=== PATIENT | female | born 1975 | race Caucasian/White ===

== ENCOUNTER 2016-10-19 03:20 | Emergency (ER) | payer MEDICARE ==
[~2016-10-19] VITALS: Ht 162.6 cm; Wt 60.5 kg
[~2016-10-19 03:20] MED LIST: FOLI1TAB4 PO; HALO5TAB PO; PANT40TA3 PO; VITA100T2 PO
[2016-10-19 03:25] VITALS: BP 117/74; PULSE 63; RESP 16; TEMP 98.4; O2SAT 100
[2016-10-19] MEDS ORDERED: IBUPROFEN 600 MG TAB PO ONE (03:45)
--- NOTE | 2016-10-19 03:50 | PD ---
HPI Chief Complaint: Injury Time Seen by Provider: 03:38 Travel History International Travel<30 days: No Contact w/Intl Traveler<30days: No Traveled to known affect area: No History of Present Illness HPI 41-year-old female patient presents to the ER today for 6 days history of right foot pain and states that she has sprained her ankle 3 days ago and has been having right ankle pain. She denies any fevers or any other issues. She admits that she has been walking in wet shoes for several days. She is currently homeless. Modifying Factors: None Associated Signs & Symptoms: Right foot pain and blisters, right ankle injury Risk Factors: None PFSH Past Medical History Bipolar Disorder: Yes Anxiety: Yes Depression: Yes Cancer: No Cardiovascular Problems: No Diabetes: No Diminished Hearing: No Headaches: No Hypertension: Yes Musculoskeletal: Yes (Chronic back pain) Psychiatric: No Immunizations Current: No Schizophrenia: Yes Seizures: No Tetanus Vaccination: Unknown Influenza Vaccination: No ?: Not LMP: 10-18-16 : 9 Para: 0 Miscarriage: 9 : 0 Past Surgical History Appendectomy: Yes Genitourinary Surgery: Yes (Bladder surgery) Other Surgery: No ((L) knee, (R) shoulder) Social History Alcohol Use: Yes (Rarely) Tobacco Use: Yes (1 PPD) Substance Use: Yes (COKE AND ETOH) Allergies-Medications (Allergen,Severity, Reaction): Coded Allergies: No Known Allergies (Unverified , 10/19/16) Reported Meds & Prescriptions Reported Meds & Active Scripts Active No Active Prescriptions or Reported Medications Review of Systems Except as stated in HPI: all other systems reviewed are Neg Physical Exam Narrative GENERAL: Well-nourished, well-developed middle age white female patient in mild distress. SKIN: Focused skin assessment warm/dry. HEAD: Normocephalic. EYES: No scleral icterus. No injection or drainage. NECK: Supple, trachea midline. CARDIOVASCULAR: Regular rate and rhythm without murmurs, gallops, or rubs. RESPIRATORY: Breath sounds equal bilaterally. No accessory muscle use. GASTROINTESTINAL: Abdomen soft, non-tender, nondistended. MUSCULOSKELETAL: No cyanosis, or edema. BACK: Nontender without obvious deformity. No CVA tenderness. EXTREMITIES: No clubbing, cyanosis, or edema. There is notable edema and tenderness on palpation over the right lateral malleolus. No obvious deformities identified. There is significant blistering and open sores over the bottom of the right foot as well as toes. Generally erythematous. Neurovascularly intact. Data Data Last Documented VS Vital Signs Date Time Temp Pulse Resp B/P Pulse Ox O2 Delivery O2 Flow Rate FiO2 10/19/16 03:35 Room Air 10/19/16 03:25 98.4 63 16 117/74 100 Orders Ankle, Complete ([id number]) (10/19/16 03:38) Ibuprofen (Motrin) (10/19/16 03:45) Splint Or Brace Apply/Monitor (10/19/16 04:19) Crutches (10/19/16 04:19) MDM Medical Decision Making Medical Screen Exam Complete: Yes Emergency Medical Condition: Yes Medical Record Reviewed: Yes Interpretation(s) Last 24 hours Impressions Ankle X-Ray 10/19/16 0338 Signed Impressions: Service Date/Time: Wednesday, October 19, 2016 03:46 - CONCLUSION: 1. Mild soft tissue swelling over the lateral malleolus with no acute fracture or malalignment. 2. Small spur off the inferior calcaneus. Miguelangel Zuniga MD Differential Diagnosis Right ankle injuryrule out fractures, trench foot Narrative Course X-ray did not show any signs of acute fractures. I suspect that she does have an ankle sprain. At this point, patient's foot was washed and dried and appears much better. I think that she has underlying problems with the witness of her sneakers which she has been wearing around for days. There is significant foot odor as well. I have told her that she needs to let the feet dry out and she needs to stop wearing the sneakers if possible. She will need to practice good foot hygiene for the next few weeks. Return for any worsening in pain, swelling, redness, or new symptoms as needed. The plan has discussed with her and she states understanding. Diagnosis Primary Impression: Right ankle sprain Additional Impression: Immersion (trench) foot Med/Other Pt SpecificInfo: Prescription(s) given Scripts Ibuprofen (Motrin Ib)200 Mg [id number] Mg PO QID PRN (PAIN SCALE 1 TO 10) #20 Prov:Tasha Benites MD 10/19/16 Sulfamethoxazole-Trimethoprim (Bactrim DS)800-160 Mg Tab1 Tab PO BID #14 TAB Ref 0 Prov:Tasha Benites MD 10/19/16 Disposition: 01 DISCHARGE HOME Condition: Stable Tasha Benites MD Oct 19, 2016 03:50
--- NOTE | 2016-10-19 04:04 | RADRPT ---
EXAM DATE/TIME: 10/19/2016 03:46 [facility] COMPARISON: ANKLE RIGHT COMPLETE ([id number]), April 12, 2016, 4:39. INDICATIONS : Fall. Right ankle pain. MEDICAL HISTORY : None. SURGICAL HISTORY : None. ENCOUNTER: Initial ACUITY: 1 day PAIN SCORE: 8/10 LOCATION: Right lateral FINDINGS: Three view exam was performed of the right ankle. The bony structures are in normal alignment. No e vidence of acute fracture or dislocation. There is mild soft tissue swelling over the lateral malleol us. The ankle mortise is intact. No radiopaque foreign bodies are seen. Bony mineralization is norm al. There is a small spur off the inferior calcaneus. CONCLUSION: 1. Mild soft tissue swelling over the lateral malleolus with no acute fracture or malalignment. 2. Small spur off the inferior calcaneus. Miguelangel Zuniga MD on October 19, 2016 at 4:01 Board Certified Radiologist. This report was verified electronically.
[2016-10-19] MEDS ORDERED: IBUP-1129 PO (04:21)
[2016-10-19] MEDS ORDERED: BACT800T5 PO (04:21)
== END 2016-10-19 04:59 | disposition home or self-care (01) ==
LOC: PHED 03:20
DX: S93.401A Sprain of unspecified ligament of right ankle, initial encounter (principal); F31.9 Bipolar disorder, unspecified; I10 Essential (primary) hypertension; F20.9 Schizophrenia, unspecified; G89.29 Other chronic pain; F17.210 Nicotine dependence, cigarettes, uncomplicated; Z59.0 Homelessness; X50.9XXA Other and unspecified overexertion or strenuous movements or postures, initial encounter; Y93.9 Activity, unspecified; Y92.9 Unspecified place or not applicable
CPT/HCPCS: 73610; 99283; E0113; L3260

== ENCOUNTER 2016-12-10 10:16 | Emergency (ER) | payer MEDICARE ==
[~2016-12-10] VITALS: Ht 163.8 cm; Wt 69.0 kg
[~2016-12-10 10:16] MED LIST changes: +BACT800T5 PO; -FOLI1TAB4 PO; -HALO5TAB PO; +IBUP-1129 PO; -PANT40TA3 PO; -VITA100T2 PO
[2016-12-10 10:24] VITALS: BP 106/76; PULSE 97; RESP 24; TEMP 97.8; O2SAT 99
[2016-12-10] MEDS ORDERED: PERC10TA27 PO (10:47)
[2016-12-10 12:03] LABS: BACTERIA, URINE FEW /hpf; BLOOD, URINE LARGE (NEG); COMMENT (UR) CULTURE INDICATED; CULTURE IF INDICATED CULTURE INDICATED; GLUCOSE,URINE NEG (NEG); KETONE, URINE 10 mg/dL (NEG); MUCUS URINE MOD /lpf (OCC); NITRITE,URINE NEG (NEG); PH, URINE 5.5 (5.0-8.5); SQUAMOUS EPITHELIAL CELL URINE 19 /hpf (0-5)
--- NOTE | 2016-12-10 12:04 | PD ---
HPI Chief Complaint: Complaint Time Seen by Provider: 10:35 Travel History International Travel<30 days: No Contact w/Intl Traveler<30days: No Traveled to known affect area: No History of Present Illness HPI Patient is a 41-year-old female presenting to emergency for evaluation of urinary symptoms. She reports burning and frequency. She also reports vaginal discharge that has a foul odor. She denies any fever, chills, nausea, vomiting , abdominal pain, back pain. Symptoms started several days ago but also chronic in nature. PFSH Past Medical History Bipolar Disorder: Yes Anxiety: Yes Depression: Yes Cancer: No Cardiovascular Problems: Yes Diabetes: No Diminished Hearing: No Headaches: No Hypertension: Yes Musculoskeletal: Yes (Chronic back pain) Psychiatric: No Immunizations Current: No Schizophrenia: Yes Seizures: No Tetanus Vaccination: < 5 Years ?: Unknown LMP: 11/23/16 : 9 Para: 0 Miscarriage: 9 : 0 Past Surgical History Appendectomy: Yes Genitourinary Surgery: Yes Other Surgery: No ((L) knee, (R) shoulder) Social History Alcohol Use: Yes Tobacco Use: Yes Substance Use: No Allergies-Medications (Allergen,Severity, Reaction): Coded Allergies: No Known Allergies (Unverified , 12/10/16) Reported Meds & Prescriptions Reported Meds & Active Scripts Active Reported Percocet (Oxycodone-Acetaminophen) 10-325 mg Tab 1 Tab PO Q4H PRN Review of Systems Except as stated in HPI: all other systems reviewed are Neg Genitourinary: Positive: Frequency, Dysuria, Discharge Physical Exam Narrative GENERAL: Well developed, well-nourished, alert female. Resting comfortably in no acute distress SKIN: Warm and dry. HEAD: Atraumatic. Normocephalic. EYES: Pupils equal and round. No scleral icterus. No injection or drainage. ENT: No nasal bleeding or discharge. Mucous membranes pink and moist. NECK: Trachea midline. No JVD. CARDIOVASCULAR: Regular rate and rhythm. RESPIRATORY: No accessory muscle use. Clear to auscultation. Breath sounds equal bilaterally. GASTROINTESTINAL: Abdomen soft, non-tender, nondistended. Hepatic and splenic margins not palpable. GENITOURINARY: Normal external genitalia without lesions or erythema. Vaginal vault without blood. Yellow-green drainage noted in vault. Cervical os was closed. Cervix is erythematous and friable. No cervical motion tenderness. Uterus nontender and nonenlarged. Bilateral adnexa nontender without masses. MUSCULOSKELETAL: Extremities without clubbing, cyanosis, or edema. No obvious deformities. NEUROLOGICAL: Awake and alert. No obvious cranial nerve deficits. Motor grossly within normal limits. Five out of 5 muscle strength in the arms and legs. Normal speech. PSYCHIATRIC: Appropriate mood and affect; insight and judgment normal. Data Data Last Documented VS Vital Signs Date Time Temp Pulse Resp B/P (MAP) Pulse Ox O2 Delivery O2 Flow Rate FiO2 12/10/16 10:48 73 16 12/10/16 10:24 97.8 106/76 (86) 99 Orders Orders Gc And Chlamydia Pcr (12/10/16 11:00) Wet Prep Profile (12/10/16 11:00) Urinalysis - C+S If Indicated (12/10/16 11:00) Urine Culture (12/10/16 10:00) Cephalexin (Keflex) (12/10/16 12:30) Labs Laboratory Tests Test 12/10/16 10:00 12/10/16 11:30 Urine Color LIGHT-RED Urine Turbidity HAZY Urine pH 5.5 Urine Specific Llewellyn 1.031 Urine Protein 100 mg/dL Urine Glucose (UA) NEG mg/dL Urine Ketones 10 mg/dL Urine Occult Blood LARGE Urine Nitrite NEG Urine Bilirubin NEG Urine Urobilinogen 2.0 MG/DL Urine Leukocyte Esterase LARGE Urine RBC /hpf Urine WBC 63 /hpf Urine Squamous Epithelial Cells 19 /hpf Urine Bacteria FEW /hpf Urine Mucus MOD /lpf Microscopic Urinalysis Comment CULTURE INDICATED Clue Cells (Wet Prep) NONE SEEN Vaginal Trichomonas (Wet Prep) NONE SEEN Vaginal Yeast (Wet Prep) NONE SEEN MDM Medical Decision Making Medical Screen Exam Complete: Yes Emergency Medical Condition: Yes Medical Record Reviewed: Yes Interpretation(s) Vital Signs Date Time Temp Pulse Resp B/P (MAP) Pulse Ox O2 Delivery O2 Flow Rate FiO2 12/10/16 10:48 73 16 12/10/16 10:24 97.8 97 24 106/76 (86) 99 Differential Diagnosis UTI versus STD versus BV versus cervicitis versus other Narrative Course Patient is a 41-year-old female presenting with urinary symptoms and vaginal discharge. Patient's vital signs are stable, labs ordered and pending. Urinalysis is indicative of urinary tract infection. Patient will be given first dose of Keflex now. Cervix appears friable, consistent with cervicitis. Patient was offered empiric treatment for chlamydia and gonorrhea but she declined stating that she's been monogamous relationship for 3 years. Patient' s wet prep was negative. Patient was advised that she would be notified if she was positive for Chlamydia and/or gonorrhea. If this was the case that her partner would also need to be tested and/or treated. Patient verbalized understanding of discharge instructions. Patient is stable for discharge. Diagnosis Primary Impression: UTI (urinary tract infection) Qualified Codes: N39.0 - Urinary tract infection, site not specified; R31.9 - Hematuria, unspecified Additional Impression: Friable cervix Referrals: [facility] Primary Care Physician Patient Instructions: Cervicitis (GEN), General Instructions, Urinary Tract Infection in Women (GEN) Additional Instructions: Follow-up at the [facility] Complete full course of antibiotics as prescribed You will be notified regarding test results, if positive you will need to return for treatment, partner will also need to be tested and or treated. Return to the emergency department for any new or worsening symptoms. Med/Other Pt SpecificInfo: Prescription(s) given Scripts Cephalexin (Keflex) 500 Mg Cap 500 MG PO Q12H for Infection for 10 Days, #20 CAP 0 Refills Prov: Yolanda Chang 12/10/16 Disposition: 01 DISCHARGE HOME Condition: Stable Yolanda Chang Dec 10, 2016 12:04
[2016-12-10 12:09] LABS: URINE COLOR LIGHT-RED (YELLW/STRAW)
[2016-12-10] MEDS ORDERED: CEPHALEXIN MONOHYDRATE 500 MG CAP PO ONE (12:30)
[2016-12-10] MEDS ORDERED: CEPH-460 PO (12:34)
[2016-12-10 13:12] VITALS: BP 115/78
[2016-12-10 15:55] LABS: CHLAMYDIA PCR DETECTED (NOT DETECT); NEISSERIA PCR NOT DETECTED (NOT DETECT)
== END 2016-12-10 13:15 | disposition home or self-care (01) ==
LOC: NEPD 10:16
DX: N39.0 Urinary tract infection, site not specified (principal); N89.8 Other specified noninflammatory disorders of vagina; F31.9 Bipolar disorder, unspecified; F41.9 Anxiety disorder, unspecified; I10 Essential (primary) hypertension; F20.9 Schizophrenia, unspecified; Z72.0 Tobacco use
CPT/HCPCS: 81001; 87086; 87210; 87491; 87591; 99283

== ENCOUNTER 2016-12-12 07:50 | Emergency (ER) | payer MEDICARE ==
[~2016-12-12] VITALS: Ht 163.8 cm; Wt 73.0 kg
[~2016-12-12 07:50] MED LIST changes: -BACT800T5 PO; +CEPH-460 PO; -IBUP-1129 PO; +PERC10TA27 PO
[2016-12-12] MEDS ORDERED: HYDROmorphone HCL PF 1 MG/ML VIAL IV PUSH ONE (08:00)
[2016-12-12] MEDS ORDERED: SODIUM CHLOR 0.9% 1000 ML INJ 1,000 ML IV ONE (08:00)
[2016-12-12 08:04] VITALS: BP 121/68; PULSE 129; RESP 24; TEMP 98.6; O2SAT 96; O2SAT 99
[2016-12-12] MEDS ORDERED: SODIUM CHLORIDE 0.9% FLUSH 10 ML FLUSH IV FLUSH PRN (08:15)
--- NOTE | 2016-12-12 08:15 | PD ---
HPI Chief Complaint: GI Complaint Time Seen by Provider: 07:54 Travel History International Travel<30 days: No Contact w/Intl Traveler<30days: No Traveled to known affect area: No History of Present Illness HPI Patient is a 41-year-old female who presents to emergency room complaints of rectal pain and constipation. Reports that she does take opiates, reports that she has not had a bowel movement in 7 days. Patient reports that she was spraining during defecation today and her rectum prolapsed out. Fire rescue arrived on scene first - reports that they did see this rectal prolapse. EMS reports that when they arrived on scene, patient had pushed her rectum back into place. Patient is currently yelling and screaming in pain, denies history of rectal prolapse in the past. Patient does admit to history of hemorrhoids. PFSH Past Medical History Bipolar Disorder: Yes Anxiety: Yes Depression: Yes Cancer: No Cardiovascular Problems: Yes Diabetes: No Diminished Hearing: No Headaches: No Hypertension: Yes Musculoskeletal: Yes (Chronic back pain) Psychiatric: No Immunizations Current: No Schizophrenia: Yes Seizures: No ?: Not LMP: 11/23/16 : 9 Para: 0 Miscarriage: 9 : 0 Past Surgical History Appendectomy: Yes Genitourinary Surgery: Yes Other Surgery: No ((L) knee, (R) shoulder) Social History Alcohol Use: Yes Tobacco Use: Yes Substance Use: No Allergies-Medications (Allergen,Severity, Reaction): Coded Allergies: No Known Allergies (Unverified , 12/12/16) Reported Meds & Prescriptions Reported Meds & Active Scripts Active Keflex (Cephalexin) 500 Mg Cap 500 Mg PO Q12H 10 Days Reported Percocet (Oxycodone-Acetaminophen) 10-325 mg Tab 1 Tab PO Q4H PRN Review of Systems General / Constitutional: No: Fever Eyes: No: Visual changes HENT: No: Headaches Cardiovascular: No: Chest Pain or Discomfort Respiratory: No: Shortness of Breath Gastrointestinal: Positive: Constipation, Other (rectal pain), No: Abdominal Pain Genitourinary: No: Dysuria Musculoskeletal: No: Pain Skin: No Rash Neurologic: No: Weakness Psychiatric: No: Depression Endocrine: No: Polydipsia Hematologic/Lymphatic: No: Easy Bruising Physical Exam Narrative GENERAL: moderate distress SKIN: Focused skin assessment warm/dry. HEAD: Atraumatic. Normocephalic. EYES: Pupils equal and round. No scleral icterus. No injection or drainage. ENT: No nasal bleeding or discharge. Mucous membranes pink and moist. NECK: Trachea midline. No JVD. CARDIOVASCULAR: Regular rate and rhythm. No murmur appreciated. RESPIRATORY: No accessory muscle use. Clear to auscultation. Breath sounds equal bilaterally. GASTROINTESTINAL: Abdomen soft, non-tender, nondistended. Hepatic and splenic margins not palpable. Patient with external hemorrhoids which are nonthrombosed on exam, patient does not have a rectal prolapse this time, patient does have hard stool balls in her rectal vault, patient with light brown stool - exam performed with RN at bedside MUSCULOSKELETAL: No obvious deformities. No clubbing. No cyanosis. No edema. NEUROLOGICAL: Awake and alert. No obvious cranial nerve deficits. Motor grossly within normal limits. Normal speech. PSYCHIATRIC: Appropriate mood and affect; insight and judgment normal. Data Data Last Documented VS Vital Signs Date Time Temp Pulse Resp B/P (MAP) Pulse Ox O2 Delivery O2 Flow Rate FiO2 12/12/16 08:04 96 Room Air 12/12/16 08:04 98.6 129 24 121/68 (85) Orders Orders Hydromorphone Pf Inj (Dilaudid Pf Inj) (12/12/16 08:00) Sodium Chlor 0.9% 1000 Ml Inj (Ns 1000 M (12/12/16 08:00) Complete Blood Count With Diff (12/12/16 08:02) Comprehensive Metabolic Panel (12/12/16 08:02) Prothrombin Time / Inr (Pt) (12/12/16 08:02) Act Partial Throm Time (Ptt) (12/12/16 08:02) Iv Access Insert/Monitor (12/12/16 08:02) Ecg Monitoring (12/12/16 08:02) Oximetry (12/12/16 08:02) Sodium Chloride 0.9% Flush (Ns Flush) (12/12/16 08:15) Ed Urine Pregnancytest Poc (12/12/16 08:02) Enema Administration PRN (12/12/16 08:14) Ct Abd/Pel W Iv Contrast(Rout) (12/12/16 08:16) Fleets Enema (Adult) (Fleets Enema (Adul (12/12/16 08:45) Iohexol 350 Inj (Omnipaque 350 Inj) (12/12/16 09:41) Labs Laboratory Tests Test 12/12/16 08:15 White Blood Count 8.1 TH/MM3 Red Blood Count 4.03 MIL/MM3 Hemoglobin 12.4 GM/DL Hematocrit 37.1 % Mean Corpuscular Volume 92.2 FL Mean Corpuscular Hemoglobin 30.8 PG Mean Corpuscular Hemoglobin Concent 33.4 % Red Cell Distribution Width 14.1 % Platelet Count 96 TH/MM3 Mean Platelet Volume 10.9 FL Neutrophils (%) (Auto) 59.2 % Lymphocytes (%) (Auto) 30.0 % Monocytes (%) (Auto) 7.7 % Eosinophils (%) (Auto) 2.9 % Basophils (%) (Auto) 0.2 % Neutrophils # (Auto) 4.8 TH/MM3 Lymphocytes # (Auto) 2.4 TH/MM3 Monocytes # (Auto) 0.6 TH/MM3 Eosinophils # (Auto) 0.2 TH/MM3 Basophils # (Auto) 0.0 TH/MM3 CBC Comment AUTO DIFF Differential Comment AUTO DIFF CONFIRMED Platelet Estimate LOW Platelet Morphology Comment ENLARGED Prothrombin Time 11.4 SEC Prothromb Time International Ratio 1.0 RATIO Activated Partial Thromboplast Time 20.5 SEC Blood Urea Nitrogen 9 MG/DL Creatinine 0.73 MG/DL Random Glucose 80 MG/DL Total Protein 6.6 GM/DL Albumin 3.4 GM/DL Calcium Level 8.5 MG/DL Alkaline Phosphatase 66 U/L Aspartate Amino Transf (AST/SGOT) 19 U/L Alanine Aminotransferase (ALT/SGPT) 24 U/L Total Bilirubin 0.2 MG/DL Sodium Level 141 MEQ/L Potassium Level 3.7 MEQ/L Chloride Level 109 MEQ/L Carbon Dioxide Level 24.6 MEQ/L Anion Gap 7 MEQ/L Estimat Glomerular Filtration Rate 87 ML/MIN [facility] Medical Decision Making Medical Screen Exam Complete: Yes Emergency Medical Condition: Yes Interpretation(s) Vital Signs Date Time Temp Pulse Resp B/P (MAP) Pulse Ox O2 Delivery O2 Flow Rate FiO2 12/12/16 08:04 96 Room Air Differential Diagnosis Differential includes constipation, small bowel obstruction, rectal prolapse Narrative Course Patient is a 41 year old female who presents to ER with complaints of rectal pain and constipation for the past 7 days. Patient reports that her rectum prolapsed prior to arrival to ER, she was able to push back her rectum back into place. Patient now complaining of rectal pain and constipation. Rectal exam was performed with RN at bedside, patient with resolution of rectal prolapse. Patient comfortable with rectal pain, she does appear to be full of stool. Attempt made to perform manual disimpaction, patient unable to tolerate manual disimpaction. Will order a soapsuds enema. Patient reevaluated, patient feeling much better at this time. She was able to have multiple bowel movements while in the emergency room, abdomen is soft, nontender, nondistended, no peritoneal signs. CT pending. Vital Signs Date Time Temp Pulse Resp B/P (MAP) Pulse Ox O2 Delivery O2 Flow Rate FiO2 12/12/16 08:04 96 Room Air 12/12/16 08:04 98.6 129 24 121/68 (85) 99 Room Air Laboratory Tests Test 12/12/16 08:15 White Blood Count 8.1 TH/MM3 (4.0-11.0) Red Blood Count 4.03 MIL/MM3 (4.00-5.30) Hemoglobin 12.4 GM/DL (11.6-15.3) Hematocrit 37.1 % (35.0-46.0) Mean Corpuscular Volume 92.2 FL (80.0-100.0) Mean Corpuscular Hemoglobin 30.8 PG (27.0-34.0) Mean Corpuscular Hemoglobin Concent 33.4 % (32.0-36.0) Red Cell Distribution Width 14.1 % (11.6-17.2) Platelet Count 96 TH/MM3 (150-450) Mean Platelet Volume 10.9 FL (7.0-11.0) Neutrophils (%) (Auto) 59.2 % (16.0-70.0) Lymphocytes (%) (Auto) 30.0 % (9.0-44.0) Monocytes (%) (Auto) 7.7 % (0.0-8.0) Eosinophils (%) (Auto) 2.9 % (0.0-4.0) Basophils (%) (Auto) 0.2 % (0.0-2.0) Neutrophils # (Auto) 4.8 TH/MM3 (1.8-7.7) Lymphocytes # (Auto) 2.4 TH/MM3 (1.0-4.8) Monocytes # (Auto) 0.6 TH/MM3 (0-0.9) Eosinophils # (Auto) 0.2 TH/MM3 (0-0.4) Basophils # (Auto) 0.0 TH/MM3 (0-0.2) CBC Comment AUTO DIFF Differential Comment AUTO DIFF CONFIRMED Platelet Estimate LOW (NORMAL) Platelet Morphology Comment ENLARGED (NORMAL) Prothrombin Time 11.4 SEC (9.8-11.6) Prothromb Time International Ratio 1.0 RATIO Activated Partial Thromboplast Time 20.5 SEC (24.3-30.1) Blood Urea Nitrogen 9 MG/DL (7-18) Creatinine 0.73 MG/DL (0.50-1.00) Random Glucose 80 MG/DL (74-106) Total Protein 6.6 GM/DL (6.4-8.2) Albumin 3.4 GM/DL (3.4-5.0) Calcium Level 8.5 MG/DL (8.5-10.1) Alkaline Phosphatase 66 U/L (45-117) Aspartate Amino Transf (AST/SGOT) 19 U/L (15-37) Alanine Aminotransferase (ALT/SGPT) 24 U/L (10-53) Total Bilirubin 0.2 MG/DL (0.2-1.0) Sodium Level 141 MEQ/L (136-145) Potassium Level 3.7 MEQ/L (3.5-5.1) Chloride Level 109 MEQ/L (98-107) Carbon Dioxide Level 24.6 MEQ/L (21.0-32.0) Anion Gap 7 MEQ/L (5-15) Estimat Glomerular Filtration Rate 87 ML/MIN (>89) Last Impressions Abdomen/Pelvis CT 12/12/16 0816 Signed Impressions: Service Date/Time: Monday, December 12, 2016 09:38 - CONCLUSION: No acute finding is identified. Colon and rectum demonstrate no acute finding. Donny Albert MD Patient re-evaluated, patient feeling much better at this time. Discussed with patient constipation most likely due to taking narcotic pain medications. Will start patient on miralax. All labs and studies as well as all incidetnal findings were reviewed with patient in detail. She will follow up with her pcp and will return to ER as needed Diagnosis Primary Impression: Constipation Qualified Codes: K59.00 - Constipation, unspecified Additional Impressions: Rectal prolapse Abdominal pain Qualified Codes: R10.9 - Unspecified abdominal pain Patient Instructions: General Instructions Additional Instructions: Please follow up with your primary care doctor Drink plenty of water as well as eat more foods with fiber Please take all medications as prescribed Please follow up with general surgery as needed Return to the ER as needed or if symptoms return Med/Other Pt SpecificInfo: Prescription(s) given Scripts Polyethylene Glycol 3350 Powder (Miralax Powder) 17 Gm Powd 17 GM PO DAILY for Constipation, #1 CAN 0 Refills Mix and dissolve one measuring cap-ful (17 grams) in water or juice. Prov: Cheri Zuluaga DO 12/12/16 Disposition: 01 DISCHARGE HOME Condition: Stable Cheri Zuluaga DO Dec 12, 2016 08:15
[2016-12-12 08:34] LABS: AUTOMATED NEUTROPHIL # 4.8 TH/MM3 (1.8-7.7); BASOPHIL % 0.2 % (0.0-2.0); EOSINOPHIL # 0.2 TH/MM3 (0-0.4); EOSINOPHIL % 2.9 % (0.0-4.0); HEMATOCRIT 37.1 % (35.0-46.0); LYMPHOCYTE # 2.4 TH/MM3 (1.0-4.8); MEAN CELL VOLUME 92.2 FL (80.0-100.0); MEAN CORPUSCULAR HEMOGLOBIN 30.8 PG (27.0-34.0); MEAN CORPUSCULAR HGB CONC 33.4 % (32.0-36.0); MONO % 7.7 % (0.0-8.0); NEUT % 59.2 % (16.0-70.0); PLATELET COUNT 96 TH/MM3 (150-450); RED BLOOD COUNT 4.03 MIL/MM3 (4.00-5.30); RED CELL DISTRIBUTION WIDTH 14.1 % (11.6-17.2); WHITE BLOOD COUNT 8.1 TH/MM3 (4.0-11.0)
[2016-12-12 08:38] LABS: HEMO FLAGS AUTO DIFF
[2016-12-12] MEDS ORDERED: SOD PHOSPHATE/SOD BIPHOSPHATE (ADULT) ENEMA 133ML RECTAL ONE (08:45)
[2016-12-12 08:49] LABS: ALT (GPT) 24 U/L (10-53); ANION GAP 7 MEQ/L (5-15); AST (GOT) 19 U/L (15-37); BICARBONATE 24.6 MEQ/L (21.0-32.0); BLOOD UREA NITROGEN 9 MG/DL (7-18); CHLORIDE 109 MEQ/L (98-107); GLOMERULAR FILTRATION RATE 87 ML/MIN (>89); POTASSIUM 3.7 MEQ/L (3.5-5.1); SODIUM (NA) 141 MEQ/L (136-145)
[2016-12-12 08:51] LABS: ALKALINE PHOSPHATASE 66 U/L (45-117); PROTHROMBIN TIME - PATIENT 11.4 SEC (9.8-11.6); TOTAL BILIRUBIN ADULT 0.2 MG/DL (0.2-1.0)
[2016-12-12 08:54] LABS: APTT (PATIENT) 20.5 SEC (24.3-30.1)
[2016-12-12 09:00] VITALS: BP 113/78; PULSE 106; RESP 20; O2SAT 98
[2016-12-12 09:25] LABS: PLATELET ESTIMATE SMEAR LOW (NORMAL); PLATELET MORPHOLOGY ENLARGED (NORMAL); SCAN/DIFF AUTO DIFF CONFIRMED
[2016-12-12] MEDS ORDERED: IOHEXOL 350 MG/ML 10 ML VIAL (for RAD DIAG) IV PUSH ONE (09:41)
--- NOTE | 2016-12-12 10:07 | RADRPT ---
EXAM DATE/TIME: 12/12/2016 09:38 [facility] COMPARISON: CT ABDOMEN & PELVIS W CONTRAST, May 11, 2016, 22:30. INDICATIONS : Constipation for one week, rectal prolapse today. IV CONTRAST: 72 cc Omnipaque 350 (iohexol) IV ORAL CONTRAST: No oral contrast ingested. RADIATION DOSE: 5.65 CTDIvol (mGy) MEDICAL HISTORY : Hypertension. SURGICAL HISTORY : Appendectomy. ENCOUNTER: Initial ACUITY: 1 day PAIN SCALE: 10/10 LOCATION: rectum TECHNIQUE: Volumetric scanning of the abdomen and pelvis was performed. Using automated exposure control and ad justment of the mA and/or kV according to patient size, radiation dose was kept as low as reasonably achievable to obtain optimal diagnostic quality images. DICOM format image data is available electro nically for review and comparison. FINDINGS: LOWER LUNGS: The visualized lower lungs are clear. There is respiratory motion artifact. LIVER: Homogeneous density without lesion. There is no dilation of the biliary tree. No calcified gallston es. SPLEEN: Normal size without lesion. PANCREAS: Within normal limits. KIDNEYS: Normal in size and shape. There is no mass, stone or hydronephrosis. ADRENAL GLANDS: Within normal limits. VASCULAR: There is no aortic aneurysm. BOWEL/MESENTERY: Stomach is within normal limits. The mid and distal small bowel is distended with fluid but not dilat ed. Terminal ileum is normal. No colon or rectum abnormality is identified. There are clips adjacent to the base of the cecum. There is a normal amount of stool within the colon. ABDOMINAL WALL: Within normal limits. RETROPERITONEUM: There is no lymphadenopathy. BLADDER: No wall thickening or mass. REPRODUCTIVE: Within normal limits. INGUINAL: There is no lymphadenopathy or hernia. MUSCULOSKELETAL: No acute osseous abnormalities identified. There degenerative changes of the spine. CONCLUSION: No acute finding is identified. Colon and rectum demonstrate no acute finding. Donny Albert MD on December 12, 2016 at 9:58 Board Certified Radiologist. This report was verified electronically.
[2016-12-12] MEDS ORDERED: MIRA3350 PO (10:17)
== END 2016-12-12 11:32 | disposition home or self-care (01) ==
LOC: NEPE 07:50
DX: K59.00 Constipation, unspecified (principal); K62.3 Rectal prolapse; R10.9 Unspecified abdominal pain; I10 Essential (primary) hypertension; Z72.0 Tobacco use
CPT/HCPCS: 74177; 80053; 84703; 85025; 85610; 85730; 96361; 96374; 99285; J1170; J7030; Q9967

== ENCOUNTER 2017-01-20 20:25 | Emergency (ER) | payer MEDICARE, OTHER ==
[~2017-01-20 20:25] MED LIST changes: +MIRA3350 PO
[2017-01-20 20:29] VITALS: BP 121/79; PULSE 132; RESP 22; O2SAT 96
[2017-01-20] MEDS ORDERED: HALOPERIDOL LACTATE 5 MG/ML AMP ONE (20:35)
[2017-01-20] MEDS ORDERED: HALOPERIDOL LACTATE 5 MG/ML AMP IM ONE (20:45)
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
[2017-01-20] MEDS ORDERED: LORazepam 2 MG/ML VIAL IM ONE (21:00)
[2017-01-20 21:06] VITALS: BP 95/58; PULSE 99; RESP 18; O2SAT 98
[2017-01-20 21:24] LABS: AMORPHOUS SEDIMENT, URINE RARE; BACTERIA, URINE RARE /hpf; BILIRUBIN, URINE NEG (NEG); BLOOD, URINE SMALL (NEG); GLUCOSE,URINE NEG (NEG); HYALINE CAST, URINE 3 /lpf (RARE); KETONE, URINE NEG (NEG); MUCUS URINE FEW /lpf (OCC); NITRITE,URINE NEG (NEG); SQUAMOUS EPITHELIAL CELL URINE 1 /hpf (0-5); URINE COLOR LIGHT-YELLOW (YELLW/STRAW); URINE LEUKOCYTE ESTERASE LARGE (NEG)
[2017-01-20 21:25] LABS: AUTOMATED NEUTROPHIL # 8.6 TH/MM3 (1.8-7.7); BASOPHIL % 0.3 % (0.0-2.0); EOSINOPHIL # 0.1 TH/MM3 (0-0.4); EOSINOPHIL % 0.6 % (0.0-4.0); HEMATOCRIT 43.6 % (35.0-46.0); HEMOGLOBIN 14.4 GM/DL (11.6-15.3); LYMPH % 30.2 % (9.0-44.0); LYMPHOCYTE # 4.1 TH/MM3 (1.0-4.8); MEAN CELL VOLUME 94.6 FL (80.0-100.0); MEAN CORPUSCULAR HEMOGLOBIN 31.1 PG (27.0-34.0); MEAN CORPUSCULAR HGB CONC 32.9 % (32.0-36.0); MEAN PLATELET VOLUME 11.4 FL (7.0-11.0); MONO % 5.2 % (0.0-8.0); MONOCYTE # 0.7 TH/MM3 (0-0.9); NEUT % 63.7 % (16.0-70.0); PLATELET COUNT 145 TH/MM3 (150-450); RED BLOOD COUNT 4.61 MIL/MM3 (4.00-5.30); RED CELL DISTRIBUTION WIDTH 14.5 % (11.6-17.2); WHITE BLOOD COUNT 13.5 TH/MM3 (4.0-11.0)
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
[2017-01-20 21:41] VITALS: BP 95/58; PULSE 77; RESP 16; O2SAT 98
[2017-01-20 21:44] LABS: ALBUMIN 3.8 GM/DL (3.4-5.0); AST (GOT) 24 U/L (15-37); BICARBONATE 18.6 MEQ/L (21.0-32.0); BLOOD UREA NITROGEN 8 MG/DL (7-18); CALCIUM 8.6 MG/DL (8.5-10.1); CHLORIDE 111 MEQ/L (98-107); GLOMERULAR FILTRATION RATE 61 ML/MIN (>89); GLUCOSE,RANDOM 77 MG/DL (74-106); SODIUM (NA) 141 MEQ/L (136-145)
--- NOTE | 2017-01-20 21:46 | RADRPT ---
EXAM DATE/TIME: 01/20/2017 21:23 [facility] COMPARISON: No previous studies available for comparison. INDICATIONS : Right lower leg pain. MEDICAL HISTORY : None. SURGICAL HISTORY : None. ENCOUNTER: Initial ACUITY: 1 day PAIN SCORE: Non-responsive. LOCATION: Right tibia/fibula. FINDINGS: Two view examination of the right tibia demonstrates no evidence of fracture or dislocation. Bony mi neralization is normal. The soft tissue structures are intact. CONCLUSION: Negative trauma study. Miguelangel Zuniga MD on January 20, 2017 at 21:44 Board Certified Radiologist. This report was verified electronically.
[2017-01-20 21:48] LABS: ALKALINE PHOSPHATASE 60 U/L (45-117); ALT (GPT) 21 U/L (10-53); TOTAL BILIRUBIN ADULT 0.3 MG/DL (0.2-1.0)
[2017-01-20] MEDS ORDERED: SODIUM CHLOR 0.9% 1000 ML INJ 1,000 ML IV ONE ×2 (22:15)
[2017-01-20] MEDS ORDERED: cefTRIAXone INJ 1,000 MG in SODIUM CHLORIDE 0.9% INJ 100 ML IV ONE (22:15)
[2017-01-21 00:52] VITALS: BP 105/68; PULSE 82; RESP 18; TEMP 98.8; O2SAT 100
[2017-01-21 02:20] VITALS: BP 105/68; PULSE 77; RESP 18; O2SAT 99
[2017-01-21 06:02] VITALS: BP 117/79; PULSE 71; RESP 16; O2SAT 98
[2017-01-21 11:00] VITALS: BP 135/78; PULSE 80; RESP 20; O2SAT 98
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
--- NOTE | 2017-01-21 12:35 | PD ---
Physical Exam Date Seen by Provider: Jan 21, 2017 Time Seen by Provider: 12:33 Narrative 41-year-old female previously medically cleared with urinary tract infection for psychiatric evaluation after being brought in under the Taylor act. Patient was seen and evaluated by the psychiatric services deemed psychiatrically stable for discharge home. Patient will be continued on Keflex 500 mg 3 times a day for her UTI for 7 days. Patient is to follow-up per psychiatric services plan. She should see her primary care physician regarding her UTI symptoms. Data Data Last Documented VS Vital Signs Date Time Temp Pulse Resp B/P (MAP) Pulse Ox O2 Delivery O2 Flow Rate FiO2 01/21/17 06:02 71 16 117/79 (92) 98 Room Air 01/21/17 00:52 98.8 Orders Orders Haloperidol Inj (Haldol Inj) (01/20/17 20:35) Complete Blood Count With Diff (01/20/17 20:34) Comprehensive Metabolic Panel (01/20/17 20:34) Urinalysis - C+S If Indicated (01/20/17 20:34) Electrocardiogram (01/20/17 20:34) Cath For Specimen (01/20/17 20:34) Psych Screen (01/20/17 20:34) Haloperidol Inj (Haldol Inj) (01/20/17 20:45) Restraints Non-Violent ALEXANDER.Q3H (01/20/17 20:34) Drug Screen, Random Urine (01/20/17 20:34) Alcohol (Ethanol) (01/20/17 20:34) Ct Brain W/O Iv Contrast(Rout) (01/20/17 20:34) Ct Cerv Spine W/O Contrast (01/20/17 20:34) Tibia/Fibula (Ap/Lat) (01/20/17 20:34) Ed Urine Pregnancytest Poc (01/20/17 20:34) Lorazepam Inj (Ativan Inj) (01/20/17 21:00) Urine Culture (01/20/17 21:00) Lactic Acid Sepsis Protocol (01/20/17 22:08) Blood Culture (01/20/17 22:08) Ceftriaxone Inj (Rocephin Inj) (01/20/17 22:15) Sodium Chlor 0.9% 1000 Ml Inj (Ns 1000 M (01/20/17 22:15) Sodium Chlor 0.9% 1000 Ml Inj (Ns 1000 M (01/20/17 22:15) Labs Laboratory Tests Test 01/20/17 21:00 01/20/17 23:38 White Blood Count 13.5 TH/MM3 Red Blood Count 4.61 MIL/MM3 Hemoglobin 14.4 GM/DL Hematocrit 43.6 % Mean Corpuscular Volume 94.6 FL Mean Corpuscular Hemoglobin 31.1 PG Mean Corpuscular Hemoglobin Concent 32.9 % Red Cell Distribution Width 14.5 % Platelet Count 145 TH/MM3 Mean Platelet Volume 11.4 FL Neutrophils (%) (Auto) 63.7 % Lymphocytes (%) (Auto) 30.2 % Monocytes (%) (Auto) 5.2 % Eosinophils (%) (Auto) 0.6 % Basophils (%) (Auto) 0.3 % Neutrophils # (Auto) 8.6 TH/MM3 Lymphocytes # (Auto) 4.1 TH/MM3 Monocytes # (Auto) 0.7 TH/MM3 Eosinophils # (Auto) 0.1 TH/MM3 Basophils # (Auto) 0.0 TH/MM3 CBC Comment AUTO DIFF Differential Comment AUTO DIFF CONFIRMED Platelet Estimate LOW Platelet Morphology Comment ENLARGED Urine Color LIGHT-YELLOW Urine Turbidity HAZY Urine pH 5.0 Urine Specific [place] 1.006 Urine Protein TRACE mg/dL Urine Glucose (UA) NEG mg/dL Urine Ketones NEG mg/dL Urine Occult Blood SMALL Urine Nitrite NEG Urine Bilirubin NEG Urine Urobilinogen LESS THAN 2.0 MG/DL Urine Leukocyte Esterase LARGE Urine RBC 2 /hpf Urine WBC 14 /hpf Urine Squamous Epithelial Cells 1 /hpf Urine Amorphous Sediment RARE Urine Bacteria RARE /hpf Urine Hyaline Casts 3 /lpf Urine Mucus FEW /lpf Microscopic Urinalysis Comment CULTURE INDICATED Blood Urea Nitrogen 8 MG/DL Creatinine 1.00 MG/DL Random Glucose 77 MG/DL Total Protein 7.0 GM/DL Albumin 3.8 GM/DL Calcium Level 8.6 MG/DL Alkaline Phosphatase 60 U/L Aspartate Amino Transf (AST/SGOT) 24 U/L Alanine Aminotransferase (ALT/SGPT) 21 U/L Total Bilirubin 0.3 MG/DL Sodium Level 141 MEQ/L Potassium Level 3.7 MEQ/L Chloride Level 111 MEQ/L Carbon Dioxide Level 18.6 MEQ/L Anion Gap 11 MEQ/L Estimat Glomerular Filtration Rate 61 ML/MIN Urine Opiates Screen NEG Urine Barbiturates Screen NEG Urine Amphetamines Screen NEG Urine Benzodiazepines Screen NEG Urine Cocaine Screen POS Urine Cannabinoids Screen NEG Ethyl Alcohol Level 157 MG/DL Lactic Acid Level 1.5 mmol/L MDM Medical Record Reviewed: Yes Supervised Visit with LAZARA: Yes Diagnosis Primary Impression: Urinary tract infection Qualified Codes: N30.00 - Acute cystitis without hematuria Additional Impression: 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
[2017-01-21] MEDS ORDERED: CEPH-460 PO (12:36)
--- NOTE | 2017-01-21 13:24 | EKG ---
Date Performed: 01/20/2017 Time Performed: 21:05:56 PTAGE: 41 years EKG: Sinus rhythm POSSIBLE LEFT ATRIAL ENLARGEMENT BORDERLINE ECG NO PREVIOUS TRACING DOCTOR: Wilfrid Padron Interpretating Date/Time 01/21/2017 13:17:13
== END 2017-01-21 13:55 | disposition home or self-care (01) ==
LOC: NEPE 20:25
DX: O23.41 Unspecified infection of urinary tract in pregnancy, first trimester (principal); O99.341 Other mental disorders complicating pregnancy, first trimester; F15.24 Other stimulant dependence with stimulant-induced mood disorder; O16.1 Unspecified maternal hypertension, first trimester; O99.331 Smoking (tobacco) complicating pregnancy, first trimester; V03.90XA Pedestrian on foot injured in collision with car, pick-up truck or van, unspecified whether traffic or nontraffic accident, initial encounter; Z3A.01 Less than 8 weeks gestation of pregnancy
CPT/HCPCS: 70450; 72125; 73590; 80053; 80307; 81001; 83605; 84703; 85025; 87040; 87086; 93005; 96361; 96365; 96372; 99285; J0696; J1630; J2060; J7030; P9612